=== PATIENT | male | born 1940 | race Caucasian/White ===

== ENCOUNTER 2017-12-31 17:02 | Emergency (ER) | payer OTHER, SELFPAY ==
[2017-12-31] VITALS (7 sets, daily range): BP systolic 51–141; BP diastolic 38–109; PULSE 0–68; RESP 0–26; TEMP 35.8; O2SAT 93–100; BMI 21.7
[2017-12-31] MEDS: 0.9% Normal Saline 1,000 ML 999 ML IV ×2 (17:04)
[2017-12-31] MEDS: Succinylcholine Chloride 200 MG/10 ML Vial 100 MG IV (17:04)
--- NOTE | 2017-12-31 17:10 | CT_ITS ---
STUDY: CT BRAIN WITHOUT CONTRAST REASON FOR EXAM: Male, 77 years old. Recent fall. RADIATION DOSAGE (If Supplied By Facility): CTDIvol = ( 44.99 ) mGy, DLP = ( 897.35 ) mGycm TECHNIQUE: Transaxial CT imaging of the brain was performed without administration of intravenous contrast material. Multiplanar reformations are submitted for interpretation. Multiple images are limited by patient motion. Individualized dose optimization techniques were used for this CT. COMPARISON: Prior comparison studies are not available for review at this time. FINDINGS: There is a large hematoma located adjacent to the left left temporal bone as well as the left lateral frontal cranium. There appears to be a left squamosal temporal bone fracture with associated pneumocephalus on the left middle cranial fossa. There appears to be diffuse effacement of cerebral and cerebellar sulci probably related to diffuse cerebral edema. There is effacement of basilar cisterns, probably related to early transvaginal shift. There is diffuse subarachnoid hemorrhage throughout the cortical sulci. Some of this appearance may be the result of an anoxic injury. There is exaggerated taylor-white differentiation, possibly also related to anoxic injury. Normal basal ganglia and thalami. Normal brainstem. There is diffuse effacement of the cerebellar sulci probably related to increased cerebral edema and increased intracranial pressure. Addition to subarachnoid hemorrhage. There appear to be bilateral subdural hematomas, one on the right measures approximately 6.5 mm. The left-sided subdural hematoma measures approximately 9.5 mm. There is mild atherosclerotic calcification of intracranial arteries. Patient is intubated. There is fluid in bilateral maxillary sinuses in addition to mucoperiosteal thickening. There is opacification of several ethmoid sinuses. There may also be an undisplaced high left lateral parietal fracture as well. CT/Brain/Head without Contrast IMPRESSION: 1. Diffuse cerebral edema with transtentorial shift with what appears to be both subarachnoid hemorrhage and subdural hemorrhage. 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 2. Early transtentorial shift. 3. Left-sided temporal and parietal cranial fracture with pneumocephalus. 4. Paranasal sinus disease. 5. Large left-sided scalp hematoma probably related to contusion. 6. An aneurysm is not visualized. N.B. : The above information has been verbally conveyed by Tomeka Rodríguez MD to Liat Lopez, RN, Hospital- ED RN, on 12/31/2017 18:26:44 (ET). Electronically Signed: Tomeka Rodríguez MD at 18:33 EDT , Service support , N.B. : The above information has been verbally conveyed by Tomeka Rodríguez MD to Liat Lopez, PAUL, Hospital- ED RN, on 12/31/2017 18:26:44 (ET).
--- NOTE | 2017-12-31 17:10 | CT_ITS ---
STUDY: CT CERVICAL SPINE WITHOUT CONTRAST REASON FOR EXAM: Male, 77 years old. Head injury RADIATION DOSAGE (If Supplied By Facility): CTDIvol = ( 24.02 ) mGy, DLP = ( 583.44 ) mGycm TECHNIQUE: High resolution transaxial imaging was performed without contrast material. Sagittal and coronal images were reconstructed. Individualized dose optimization techniques were used for this CT. COMPARISON: None FINDINGS: There are degenerative changes of the atlantoaxial articulation. The odontoid process is unremarkable. There is straightening of the normal cervical lordosis. There are osteophytes scattered in the cervical spine. There is minimal anterior subluxation of C4 on C5. C2-3: There is no disc space narrowing, canal narrowing, or significant foraminal narrowing. C3-4: There is no disc space narrowing or canal narrowing. There is marked foraminal narrowing bilaterally. C4-5: There is no disc space narrowing or canal narrowing. There is marked foraminal narrowing on the left. C5-6: There is moderate disc space narrowing without canal narrowing. There is moderate foraminal narrowing on the right. C6-7: There is moderate disc space narrowing without canal narrowing. There is mild foraminal narrowing bilaterally. C7-T1: There is no disc space narrowing, canal narrowing, or significant foraminal narrowing. There is biapical scarring. The thyroid is within normal limits. An endotracheal tube and gastric tube are present. CT/Spine Cervical without Contras IMPRESSION: No acute abnormalities are seen in the cervical spine. There are scattered degenerative changes, described above. Electronically Signed: Ольга Dodson MD at 18:50 EDT Tel Direct: [phone], Service support ,
--- NOTE | 2017-12-31 17:14 | ED.RN ---
LARGE OCCIPITAL LAC, BLEEDING CONTROLLED WITH PRESSURE DRESSING. AT BEDSIDE, CALLED FAMILY. PT TO CT ON ALL MONITORS WITH RN AND RT.
--- NOTE | 2017-12-31 17:18 | ED.RN ---
STATES PT STATED HIS BP WAS HIGH TODAY. PT HAD JUST RETURNED FROM WORK AND WAS GOING TO MOW THE LAWN. POSSIBLY 45MINS BEFORE FOUND. SHE THOUGHT HE HAD TAKEN A NAP. FELL DOWN BASEMENT STEPS.
[2017-12-31] MEDS: fentaNYL 100 MCG/2 ML Ampul 50 MCG IV (17:20)
[2017-12-31 17:25] LABS: Absolute Lymphocyte Count 5.63 X10^3/ul (0.83-4.51); Basophil# 0.07 X10^3/uL; Basophil% 0.4 % (0-1); Eosinophil# 0.84 X10^3/uL; Eosinophils% 4.7 % (0-5); Hemoglobin 9.7 g/dl (13.0-16.5); Lymphocyte # 5.63 X10^3/ul (4.0); Lymphocyte % 31.4 % (19-41); Mean Corp Hgb Conc 32.3 g/gl (32-36); Mean Corpuscular Hgb 30.1 pg (27.0-32.0); Mean Corpuscular Volume 93.2 fL (80-94); Mean Platelet Vol. 9.3 fl (6.2-12.0); Monocyte# 0.36 X10^3/uL; Neutrophil # 10.99 X10^3/uL (2.7-7.7); Neutrophil % 61.2 % (47-70); Platelet Count 150 K/mm3 (150-450); RBC Distribution Width CV 12.9 % (11.6-14.6); RBC Distribution Width SD 43.8 fl (35.1-43.9); Red Blood Count 3.22 M/mm3 (4.6-6.2); White Blood Count 17.9 K/mm3 (4.4-11.0)
[2017-12-31 17:26] LABS: Differential Indicated SCAN CRITERIA MET; POSITIVE COUNT NO; POSITIVE DIFFERENTIAL YES; POSITIVE MORPHOLOGY YES
[2017-12-31 17:27] LABS: Prothrombin Time (Protime)PT. 51.6 SECONDS (11.7-14.9)
[2017-12-31 17:32] LABS: International Normalized Ratio 5.7
--- NOTE | 2017-12-31 17:36 | ED.RN ---
Addendum entered by Vandana Gay 12/31/17 20:27: ABRASION TO LEFT SHOULDER, LARGE FIRM HEMATOMA TO LEFT TEMPORAL AREA. ABRASION TO LEFT ELBOW. Original Note: INJURIES NOTED: OCCIPITAL LACERATION, ABRASIONS TO RIGHT SHOULDER, LUMBAR SPINE. HEMATOMA RIGHT ELBOW.
[2017-12-31 17:39] LABS: ALB/GLOB Ratio 0.9 RATIO (0.9-2.4); AST(SGOT) 70 U/L (15-37); Alanine Aminotransfer ALT/SGPT 25 U/L (16-61); Albumin, Serum 2.8 g/dL (3.2-5.0); Alkaline Phosphatase 52 U/L (45-117); Anion Gap 14 (5-15); BUN 28 mg/dL (7-18); BUN/Creat Ratio 19.7 RATIO (10-20); Calcium,Total 7.5 mg/dL (8.5-10.1); Chloride 108 mmol/L (98-107); Creatinine, Serum 1.42 mg/dL (0.70-1.30); EST Glomerular Filtration Rate 52 mL/min (>60); Est Glom Filt Rate - Afr Amer 62 mL/min (>60); Estimated Creatinine Clearance 47.58 ml/min; Glucose 326 mg/dL (74-106); Potassium 3.5 mmol/L (3.5-5.1); Protein, Total 5.8 g/dL (6.4-8.2); Sodium Level 140 mmol/L (136-145)
[2017-12-31 17:44] LABS: Differential Comment SCANNED
--- NOTE | 2017-12-31 18:07 | ED.RN ---
FAMILY UPDATED ON PT CONDITION. LENGTHY DISCUSSION WITH DR COLE. ERD AWARE OF VS. 1:1 NURSING CARE SINCE TIME OF ARRIVAL. FAMILY AT BEDSIDE.
--- NOTE | 2017-12-31 18:28 | ED.RN ---
BACKBOARD REMOVED PER ERD. AWARE OF VS. FURTHER DISCUSSION WITH FAMILY.
--- NOTE | 2017-12-31 18:39 | ED.RN ---
EXTUBATION PER DR COLE.
--- NOTE | 2017-12-31 18:56 | ED.VISSUMM ---
- ER Visit Summary Date of Service: 12/31/17 Chief Complaint: Found down History of Present Illness: The patient is a 77 M who was found at the bottom of the steps unresponsive. He had been mowing. He had last been seen about 30-45 minutes prior to being found by his . He was found unresponsive at the bottom of the steps with snoring respirations. EMS reports a large amount of blood on scene and estimated blood loss of at least 1 L. He arrived undergoing bag valve mask ventilation. Family reports a history of hypertension but really no other medical history. They deny anticoagulation. Physical Examination: Blood pressure 141/74 temperature 96.5 heart rate 52 respiratory rate 12 pulse ox was 100% on mechanical ventilation GCS of 3 patient unresponsive to pain there was no withdrawal or posturing in any of the 4 extremities Snoring respirations Large amount of blood matted in the hair and there is a large occipital scalp laceration which is stellate with macerated tissue approximately 8 cm Heart is regular bradycardia Rhonchorous breath sounds but spontaneous respirations Pupils are fixed and dilated at roughly 8 mm The abdomen is soft and nondistended No obvious extremity deformities or other lacerations Test Results: CT of the head shows cerebral edema with transtentorial shift subarachnoid hemorrhage subdural hemorrhage possibly severe end-stage anoxic brain injury there is a left temporoparietal skull fracture as well. Laboratory studies notable for white blood cell count 17.9. Hemoglobin 9.7. CO2 18. Creatinine 1.42. INR 5.7. AST 70. Alcohol normal. Emergency Department Course and Treatment: Patient was intubated with a glide scope. Given he was unresponsive we did not give a sedative. He was given 100 mg of succinylcholine. Initial attempt with a size 3 glide scope was unsuccessful. This was attempted with size for and was successful. There was change in the easy cap and equal breath sounds bilaterally. A FAST exam was negative. Zaman and OG were placed and the patient taken to CT with physician at bedside. This did show multiple areas of intracranial hemorrhage. Once he arrived back in the room the laceration was injected with lidocaine with epinephrine and 3 4-0 nonabsorbable sutures were placed to roughly approximate the scalp laceration just to achieve hemostasis given the patient's critical condition. I spoke to the family regarding the very poor prognosis. They were leaning towards just comfort measures but would like to obtain neurosurgical consultation if possible. I paged Jorge. While awaiting a callback from neurosurgery the patient's family made the decision to pursue comfort measures only. I later did speak to neurosurgery- Dr Rogel who agreed with very prognosis advised that even with aggressive measures the likelihood of survival was roughly 5% and that likelihood of meaningful neurological recovery was 0. Patient was terminally extubated and after this had no spontaneous respirations and was pulseless with no spontaneous heart tones and was declared . Treatment Plan: [] Disposition: Impression: Intracranial hemorrhage Skull fracture Laceration repair Endotracheal intubation This note was generated with [employer] dictation software. It may contain incorrect words, spelling, and punctuation that were not noted in review of the chart prior to signing ED Disposition - Plan for ED Patient: Chief Complaint: Fall Referrals: Greyson Valenzuela [Primary Care Provider] -
--- NOTE | 2017-12-31 19:16 | CPS ---
Pt extubated by this ANTIQUE REPAIRER with RN at bedside. Extubation at [address] Rodríguez and family request.
== END 2017-12-31 21:22 ==
PROVIDERS: Emergency Provider Emergency Medicine; Family Provider Family Medicine; PCP Family Medicine
DX: S02.19XA Other fracture of base of skull, initial encounter for closed fracture (principal); S02.0XXA Fracture of vault of skull, initial encounter for closed fracture; S01.01XA Laceration without foreign body of scalp, initial encounter; W10.9XXA Fall (on) (from) unspecified stairs and steps, initial encounter; Y93.89 Activity, other specified; Y92.009 Unspecified place in unspecified non-institutional (private) residence as the place of occurrence of the external cause; I10 Essential (primary) hypertension; Z79.899 Other long term (current) drug therapy
CPT/HCPCS: 12004; 31500; 51702; 70450; 72125; 80053; 80320; 85025; 85610; 94002; 96360; 99251; 99283; J7030; A4216; G0463; G0480; J0330